=== PATIENT | male | born 1965 | race Caucasian/White ===

== ENCOUNTER 2021-01-21 14:10 | Outpatient (CLI) | payer BC | END 2021-01-21 14:11 | disposition home or self-care (01) | LOC: BICRAD 14:10 | PROVIDERS: ATTEND Family Medicine | DX: M79.671 Pain in right foot (principal); M19.071 Primary osteoarthritis, right ankle and foot ==

== ENCOUNTER 2022-09-01 14:03 | Outpatient (CLI) | payer BC | END 2022-09-01 14:04 | disposition home or self-care (01) | LOC: ULT 14:03 | PROVIDERS: ATTEND Family Medicine | DX: N18.31 Chronic kidney disease, stage 3a (principal); N28.89 Other specified disorders of kidney and ureter | CPT/HCPCS: 76770; 93975 ==

== ENCOUNTER 2023-01-22 07:40 | Outpatient (CLI) | payer BC | END 2023-01-22 07:41 | disposition home or self-care (01) | LOC: BICRAD 07:40 | PROVIDERS: ATTEND Family Medicine | DX: M25.561 Pain in right knee (principal); F90.9 Attention-deficit hyperactivity disorder, unspecified type; M17.11 Unilateral primary osteoarthritis, right knee; M25.461 Effusion, right knee ==